=== PATIENT | female | born 1960 | race African-American/Black ===

== ENCOUNTER 2022-12-19 17:21 | Emergency (ER) | payer MEDICAID ==
[~2022-12-19] VITALS: Ht 162.6 cm; Wt 59.0 kg
[2022-12-19 20:14] LABS: Urine Bacteria NONE SEEN /hpf (None Seen); Urine Blood Negative /uL (Negative); Urine Clarity Clear (Clear); Urine Color Yellow (Yellow); Urine Mucus FEW (None Seen); Urine Protein, UAD TRACE (Negative); Urine Specific Gravity 1.022 (1.001-1.035); Urine Urobilinogen Normal (Negative); Urine WBC 3 /hpf (0 - 5)
[2022-12-19 22:47] VITALS: BP 134/83; PULSE 55; RESP 18; O2SAT 98
== END 2022-12-19 22:50 | disposition home or self-care (01) ==
LOC: ER 17:21 → EDBD 17:21 → ER 22:48
DX: R55 Syncope and collapse (principal); Z88.8 Allergy status to other drugs, medicaments and biological substances
CPT/HCPCS: 81001; 93005